=== PATIENT | male | born 1960 | race Two or more races ===

== ENCOUNTER 2024-06-11 12:07 | Emergency (ER) | payer BC, MEDICAID ==
[~2024-06-11] VITALS: Ht 182.9 cm; Wt 130.0 kg
[~2024-06-11 12:07] MED LIST: CARV3.1240 PO; DAPA1TAB4 PO; DIGO0.12 PO; FURO20TA3 PO; INSUINJ37 SC; LOSA-533 PO; METF-370 PO; OMEG-86 PO; RIV20T PO; ROSU20TA14 PO; SEMA1INJ2 SC
--- NOTE | 2024-06-11 13:19 | DVH ---
XY CHEST TWO VIEWS ROUTINE CLINICAL HISTORY: sob COMPARISON: None TECHNIQUE: Frontal and lateral view of the chest was obtained FINDINGS: Lines and Tubes: None Lungs: No focal consolidation. Mild diffuse interstitial prominence. Pleura: No effusion. No pneumothorax. Cardiomediastinal contours:Borderline cardiomegaly Bones: No acute osseous abnormality. IMPRESSION: 1. Borderline cardiomegaly with mild pulmonary vascular congestion. HS:Y
[2024-06-11 13:39] LABS: Basophils # (auto) 0.1 10 ^3/uL (0-0.2); Basophils % (auto) 1.1 % (0.0-2.0); Eosinophils # (auto) 0.2 10 ^3/uL (0-0.8); Eosinophils % (auto) 2.2 % (0.0-7.0); Hematocrit 36.2 % (41.0-53.0); Hemoglobin 12.6 g/dL (13.5-17.5); Lymphocytes # (auto) 1.7 10 ^3/uL (0.4-5.4); Lymphocytes % (auto) 21.6 % (10.0-50.0); Mean Corpuscular Hemoglobin 30.3 pg (28.0-32.0); Mean Corpuscular Hgb Conc. 34.8 g/dL (32.0-36.0); Mean Corpuscular Volume 87.1 fL (80.0-100.0); Monocytes % (auto) 12.9 % (0.0-12.0); Neutrophils # (auto) 4.9 10 ^3/uL (1.6-8.6); Neutrophils % (auto) 62.2 % (37.0-80.0); Nucleated Red Blood Cells % 0.1 %; Platelet Count (auto) 336 10^3/uL (140-450); Red Blood Cells 4.15 10^6/uL (4.5-5.90); Red Cell Distribution Width 14.6 % (11.8-14.3); White Blood Cell 7.9 10^3/uL (4.4-10.8)
[2024-06-11 14:00] LABS: Chloride 98 mmol/L (98-107); Sodium 136 mmol/L (136-145)
[2024-06-11 14:01] LABS: Anion Gap 6 (5-15); Calcium 9.3 mg/dL (8.7-10.4)
[2024-06-11 14:05] LABS: Carbon Dioxide 32 mmol/L (20-31); Potassium 3.1 mmol/L (3.5-5.1)
[2024-06-11 14:06] LABS: BUN/Creatinine Ratio 8.1 (10.0-20.0); Blood Urea Nitrogen 9 mg/dL (9-23)
[2024-06-11 14:09] LABS: Glucose 124 mg/dL (74-106)
[2024-06-11 14:30] VITALS: BP 120/69; TEMP 98.4
--- NOTE | 2024-06-11 14:35 | ED.PDOC ---
Musculoskeletal HPI Comments 64y M who presents to the ED via EMS for chief complaint of extremity swelling. Pt states he has noticed increased swelling of his bilateral lower extremities and called EMS. Pt states he has noticed history of CHF and states he was out of his Lasix for the past 10 days but states he has started taking it again a few days prior. Pt states he has continued to have swelling and called EMS. Pt otherwise in the ED, denies chest pain, shortness of breath, headache, dizziness, fever, cough, or chills. Pt in the ED, able to ambulate without getting short of breath. Pt otherwise denies any other symptoms at this time. Chief Complaint: Extremity Swelling Time Seen by MD: 14:13 Primary Care Provider: MIGDALIA Okeefe Notes: Nurses Notes, Firepot Operator And Tender Notes, Medications, Allergies Allergies: Coded Allergies: NO KNOWN ALLERGIES (Unverified , 06/11/24) Information Source: Patient, Emergency Med Personnel Mode of Arrival: EMS Brought in by: EMS Location: Left, Bilateral Extremity Location: Leg Timing: Days Prehospital treatment: None Severity: Moderate Able to Move Extremity: Yes Bear Weight: Fully Pain: Moderate Mechanism: Unknown, Spontaneous Circumstances: Unknown Onset of Symptoms: Spontaneous Symptoms: Swelling, Pain DVT Risk Factors: NONE Last Tetanus: Unknown Associated signs and symptoms: Leg pain Past Medical History PAST MEDICAL HISTORY: AFIB, CHF, DM, HTN Surgical History: Hernia Repair Family History Family History: Unknown Social History Smoker: Non-Smoker Alcohol: Denies ETOH Use Drugs: Marijuana Lives In: Home Constitutional: denies: chills, diaphoresis, fatigue, fever, malaise, sweats, weakness, others EENTM: denies: blurred vision, double vision, ear bleeding, ear discharge, ear drainage, ear pain, ear ringing, eye pain, eye redness, hearing loss, mouth pain, mouth swelling, nasal discharge, nose bleeding, nose congestion, nose pain, photophobia, tearing, throat pain, throat swelling, voice changes, others Respiratory: denies: cough, hemoptysis, orthopnea, SOB at rest, shortness of breath, SOB with excertion, stridor, wheezing, others Cardiovascular: denies: chest pain, dizzy spells, diaphoresis, Dyspnea on exertion, edema, irregular heart beat, left arm pain, lightheadedness, palpitations, PND, syncope, others Gastrointestinal: denies: abdomen distended, abdominal pain, blood streaked bowels, constipated, diarrhea, dysphagia, difficulty swallowing, hematemesis, melena, nausea, poor appetite, poor fluid intake, rectal bleeding, rectal pain, vomiting, others Genitourinary: denies: burning, dysuria, flank pain, frequency, hematuria, i ncontinence, penile discharge, penile sore, pain, testicle pain, testicle swelling, urgency, others Neurological: denies: dizziness, fainting, headache, left sided numbness, left sided weakness, numbness, paresthesia, pre-existing deficit, right sided numbness, right sided weakness, seizure, speech problems, tingling, tremors, weakness, others Musculoskeletal: reports: joint swelling (b/l lower extremity); denies: back pain, gout, joint pain, muscle pain, muscle stiffness, neck pain, others Integumetry: denies: bruises, change in color, change in hair/nails, dryness, laceration, lesions, lumps, rash, wounds, others Allergic/Immunocompromised: denies: Difficulty Healing, Frequent Infections, Hives, Itching, others Hematologic/Lymphatic: denies: anemia, blood clots, easy bleeding, easy bruising, swollen glands, others Endocrine: denies: excessive hunger, excessive sweating, excessive thirst, excessive urination, flushing, intolerance to cold, intolerance to heat, unexplained weight gain, unexplained weight loss, others Psychiatric: denies: anxiety, bipolar disorder, depression, hopeless, panic disorder, schizophrenia, sleepless, suicidal, others All Other Systems: Reviewed and Negative Physical Exam General Appearance: No Apparent Distress HEENT: Normal ENT Inspection, Pharynx Normal, TMs Normal Neck: Full Range of Motion, Non-Tender, Normal, Normal Inspection Respiratory: Chest Non-Tender, Lungs Clear, No Accessory Muscle Use, No Respiratory Distress, Normal Breath Sounds Cardiovascular: No Edema, No JVD, No Murmur, No Gallop, Normal Peripheral Pulses, Regular Rate/Rhythm Breast Exam: Deferred Gastrointestinal: No Organomegaly, Non Tender, No Pulsatile Mass, Normal Bowel Sounds, Soft Genitalia: Deferred Pelvic: Deferred Rectal: Deferred Extremities: No calf tenderness, Normal capillary refill, Normal inspection, Normal range of motion, Non-tender, No pedal edema Musculoskeletal : Apperance: Normal Neurologic: Alert, air valve repairer II-XII nml as Tested, No Motor Deficits, Normal Affect, Normal Mood, No Sensory Deficits Cerebellar Function: Normal Reflexes: Normal Skin: Dry, Normal Color, Warm Lymphatic: No Adenopathy Was a procedure done? Was a procedure done?: No EKG EKG : Pulse Rate (adult): 94 Theresa: Normal Cardiac Rhythm: Afib ST: Nonsp Differential Diagnosis EXT Differential Diagnosis: Cellulitis, CHF, Deep Vein Thrombosis, Arthritis X-Ray, Labs, Meds, VS Vital Signs Date Time Temp Pulse Resp B/P (MAP) Pulse Ox O2 Delivery O2 Flow Rate FiO2 06/11/24 15:56 94 06/11/24 14:46 96 20 97 Room Air 06/11/24 14:30 98.4 96 20 120/69 (86) 97 98.4 06/11/24 12:27 94 06/11/24 12:10 98.9 75 18 125/84 (98) 98 Lab Test 06/11/24 14:43 06/11/24 13:28 Range/Units Troponin I High Sensitivity 51 52 </=54 ng/L White Blood Count 7.9 4.4-10.8 10^3/uL Red Blood Count 4.15 L 4.5-5.90 10^6/uL Hemoglobin 12.6 L 13.5-17.5 g/dL Hematocrit 36.2 L 41.0-53.0 % Mean Corpuscular Volume 87.1 80.0-100.0 fL Mean Corpuscular Hemoglobin 30.3 28.0-32.0 pg Mean Corpuscular Hemoglobin Concent 34.8 32.0-36.0 g/dL Red Cell Distribution Width 14.6 H 11.8-14.3 % Platelet Count 336 140-450 10^3/uL Mean Platelet Volume 7.5 6.9-10.8 fL Neutrophils (%) (Auto) 62.2 37.0-80.0 % Lymphocytes (%) (Auto) 21.6 10.0-50.0 % Monocytes (%) (Auto) 12.9 H 0.0-12.0 % Eosinophils (%) (Auto) 2.2 0.0-7.0 % Basophils (%) (Auto) 1.1 0.0-2.0 % Neutrophils # (Auto) 4.9 1.6-8.6 10 ^3/uL Lymphocytes # (Auto) 1.7 0.4-5.4 10 ^3/uL Monocytes # (Auto) 1.0 0-1.3 10 ^3/uL Eosinophils # (Auto) 0.2 0-0.8 10 ^3/uL Basophils # (Auto) 0.1 0-0.2 10 ^3/uL Nucleated Red Blood Cells 0.1 % Sodium Level 136 136-145 mmol/L Potassium Level 3.1 L 3.5-5.1 mmol/L Chloride Level 98 98-107 mmol/L Carbon Dioxide Level 32 H 20-31 mmol/L Anion Gap 6 5-15 Blood Urea Nitrogen 9 9-23 mg/dL Creatinine 1.11 0.700-1.30 mg/dL Glomerular Filtration Rate Calc 75 >90 mL/min BUN/Creatinine Ratio 8.1 L 10.0-20.0 Serum Glucose 124 H 74-106 mg/dL Calcium Level 9.3 8.7-10.4 mg/dL B-Type Natriuretic Peptide 128.50 0-100 pg/mL XY CHEST TWO VIEWS ROUTINE IMPRESSION: 1. Borderline cardiomegaly with mild pulmonary vascular congestion. The patient states that he is feeling much better. The patient now has a Lasix and has been taking it The patient's CBC and chemistry panel is within normal limits except for hypok alemia We giving the patient some potassium here in the emergency department's The patient was being discharged and will follow up with the primary care doctor The patient will return to the emergency department's condition worsens. The patient was able to ambulate without difficulty We discussed the findings with the patient and he is in agreement with the management. Images Reviewed?: Images reviewed and evaluated by me Time of 1ST Reevaluation: 14:45 Reevaluation 1ST: Unchanged Patient Education/Counseling: Diagnosis, Treatment, Prognosis, Need For Follow Up Family Education/Counseling: No Family Present Additional Information I reviewed the following notes from patient's past medical encounters: The following tests were ordered, and results were reviewed by me: troponin x 3, BMP, chest -ray, orthostatics, BNP, CBC, EKG x1, Additional Information was gathered from interviewing the following independent historians: EMS I reviewed and agreed with the following test results read by other providers: radiologist I discussed treatment and results with medical personnel and: patient Departure 1 Departure Time of Disposition: 16:04 Impression: Primary Impression: Hypokalemia Additional Impression: CHF exacerbation Qualified Codes: I50.9 - Heart failure, unspecified Disposition: 01 HOME / SELF CARE / HOMELESS Condition: Fair Discharged With: Self Critical Care Note Critical Care Time?: No Stability Stability form required: No Heart Score Heart Score: Heart Score Response (Comments) Value History N/A 0 EKG N/A 0 Age N/A 0 Risk Factors N/A 0 Troponin N/A 0 Total 0 I personally scribed for SHMEAR MATOS MD ([email or web address]) on 06/11/24 at 14:35. Electronically submitted by Consuelo Soni ([email or web address]). SHEMAR MATOS MD Jun 11, 2024 14:35
[2024-06-11 14:46] VITALS: RESP 20; O2SAT 97
[2024-06-11 15:56] VITALS: PULSE 94
--- NOTE | 2024-06-13 13:41 | ECG ---
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
== END 2024-06-11 16:55 | disposition home or self-care (01) ==
LOC: EDBD 12:07 → ER 12:07
DX: E87.6 Hypokalemia (principal); I11.0 Hypertensive heart disease with heart failure; I50.9 Heart failure, unspecified; F12.10 Cannabis abuse, uncomplicated; E11.9 Type 2 diabetes mellitus without complications; Z98.890 Other specified postprocedural states
CPT/HCPCS: 36415; 71046; 80048; 83880; 84484; 85025; 93005

== ENCOUNTER 2024-06-15 21:57 | Inpatient (IN) | payer BC, MEDICAID ==
[~2024-06-15] VITALS: Ht 182.9 cm; Wt 101.3 kg
--- NOTE | 2024-06-15 22:26 | ED.PDOC ---
History of Present Illness HPI Comments 64-year-old male with PMHx CHF, A-Fib, HTN, DM brought in by EMS presents with a chief complaint of edema and SOB upon exertion. Patient presents with a chief complaint of edema to his bilateral legs and SOB with exertion. Patient states that he was walking because "my sister didn't pick me up". Patient reports that he was recently seen and treated here for his bilateral hand infection. Patient does not know which antibiotics he is currently prescribed. Patient is alert and oriented. Chief Complaint: Lower Extremity Time Seen by MD: 22:15 Primary Care Provider: MIGDALIA Okeefe Notes: Medications, Allergies Allergies: Coded Allergies: NO KNOWN ALLERGIES (Unverified , 06/11/24) Information Source: Patient Mode of Arrival: EMS Severity: Moderate Timing: Hours Duration: Since onset Prehospital treatment: None Past Medical History PAST MEDICAL HISTORY: AFIB, CHF, DM, HTN Surgical History: Hernia Repair Family History Family History: Unknown Social History Smoker: Non-Smoker Alcohol: Denies ETOH Use Drugs: Marijuana Lives In: Home Constitutional: denies: chills, diaphoresis, fatigue, fever, malaise, sweats, weakness, others EENTM: denies: blurred vision, double vision, ear bleeding, ear discharge, ear drainage, ear pain, ear ringing, eye pain, eye redness, hearing loss, mouth pain, mouth swelling, nasal discharge, nose bleeding, nose congestion, nose pain, photophobia, tearing, throat pain, throat swelling, voice changes, others Respiratory: reports: SOB with excertion; denies: cough, hemoptysis, orthopnea, SOB at rest, shortness of breath, stridor, wheezing, others Cardiovascular: reports: edema (BILATERAL LEGS); denies: chest pain, dizzy spells, diaphoresis, Dyspnea on exertion, irregular heart beat, left arm pain, lightheadedness, palpitations, PND, syncope, others Gastrointestinal: denies: abdomen distended, abdominal pain, blood streaked bowels, constipated, diarrhea, dysphagia, difficulty swallowing, hematemesis, melena, nausea, poor appetite, poor fluid intake, rectal bleeding, rectal pain, vomiting, others Genitourinary: denies: burning, dysuria, flank pain, frequency, hematuria, incontinence, penile discharge, penile sore, pain, testicle pain, testicle swelling, urgency, others Neurological: denies: dizziness, fainting, headache, left sided numbness, left sided weakness, numbness, paresthesia, pre-existing deficit, right sided numbness, right sided weakness, seizure, speech problems, tingling, tremors, weakness, others Musculoskeletal: denies: back pain, gout, joint pain, joint swelling, muscle pain, muscle stiffness, neck pain, others Integumetry: denies: bruises, change in color, change in hair/nails, dryness, laceration, lesions, lumps, rash, wounds, others Allergic/Immunocompromised: denies: Difficulty Healing, Frequent Infections, Hives, Itching, others Hematologic/Lymphatic: denies: anemia, blood clots, easy bleeding, easy bruising, swollen glands, others Endocrine: denies: excessive hunger, excessive sweating, excessive thirst, excessive urination, flushing, intolerance to cold, intolerance to heat, unexplained weight gain, unexplained weight loss, others Psychiatric: denies: anxiety, bipolar disorder, depression, hopeless, panic disorder, schizophrenia, sleepless, suicidal, others All Other Systems: Reviewed and Negative Physical Exam General Appearance: No Apparent Distress, Normal HEENT: Normal ENT Inspection, Pharynx Normal, TMs Normal Neck: Full Range of Motion, Non-Tender, Normal, Normal Inspection Respiratory: Chest Non-Tender, Lungs Clear, No Accessory Muscle Use, No Respiratory Distress, Normal Breath Sounds Cardiovascular: No Edema, No JVD, No Murmur, No Gallop, Normal Peripheral Pulses, Regular Rate/Rhythm Breast Exam: Deferred Gastrointestinal: No Organomegaly, Non Tender, No Pulsatile Mass, Normal Bowel Sounds, Soft Genitalia: Deferred Pelvic: Deferred Rectal: Deferred Extremities: No calf tenderness, Normal capillary refill, Normal inspection, Normal range of motion, Non-tender, No pedal edema Musculoskeletal : Apperance: Normal Neurologic: Alert, blood coordinator II-XII nml as Tested, No Motor Deficits, Normal Affect, Normal Mood, No Sensory Deficits Cerebellar Function: Normal Reflexes: Normal Skin: Dry, Normal Color, Warm Lymphatic: No Adenopathy Was a procedure done? Was a procedure done?: No Differential Dx Considerations may include: Acute on chronic CHF, CVA, ACS, pneumonia, viral syndrome X-Ray, Labs, Meds, VS Vital Signs Date Time Temp Pulse Resp B/P (MAP) Pulse Ox O2 Delivery O2 Flow Rate FiO2 06/15/24 22:10 91 06/15/24 22:04 98.0 99 18 109/68 (82) 96 Lab Test 06/16/24 01:25 06/15/24 23:36 06/15/24 22:33 Range/Units Troponin I High Sensitivity Pending 50 52 </=54 ng/L White Blood Count 9.9 # 4.4-10.8 10^3/uL Red Blood Count 4.63 4.5-5.90 10^6/uL Hemoglobin 14.0 13.5-17.5 g/dL Hematocrit 40.8 #L 41.0-53.0 % Mean Corpuscular Volume 88.0 80.0-100.0 fL Mean Corpuscular Hemoglobin 30.2 28.0-32.0 pg Mean Corpuscular Hemoglobin Concent 34.3 32.0-36.0 g/dL Red Cell Distribution Width 14.9 H 11.8-14.3 % Platelet Count 356 140-450 10^3/uL Mean Platelet Volume 7.8 6.9-10.8 fL Neutrophils (%) (Auto) 67.9 37.0-80.0 % Lymphocytes (%) (Auto) 21.7 10.0-50.0 % Monocytes (%) (Auto) 8.0 0.0-12.0 % Eosinophils (%) (Auto) 1.4 0.0-7.0 % Basophils (%) (Auto) 1.0 0.0-2.0 % Neutrophils # (Auto) 6.7 1.6-8.6 10 ^3/uL Lymphocytes # (Auto) 2.1 0.4-5.4 10 ^3/uL Monocytes # (Auto) 0.8 0-1.3 10 ^3/uL Eosinophils # (Auto) 0.1 0-0.8 10 ^3/uL Basophils # (Auto) 0.1 0-0.2 10 ^3/uL Nucleated Red Blood Cells 0.2 % Sodium Level 134 L 136-145 mmol/L Potassium Level 2.9 L 3.5-5.1 mmol/L Chloride Level 99 98-107 mmol/L Carbon Dioxide Level 25 20-31 mmol/L Anion Gap 10 5-15 Blood Urea Nitrogen 10 9-23 mg/dL Creatinine 0.88 0.700-1.30 mg/dL Glomerular Filtration Rate Calc 97 >90 mL/min BUN/Creatinine Ratio 11.4 10.0-20.0 Serum Glucose 85 74-106 mg/dL Calcium Level 10.1 8.7-10.4 mg/dL B-Type Natriuretic Peptide 158.60 0-100 pg/mL Time of 1ST Reevaluation: 22:45 Reevaluation 1ST: Unchanged Patient Education/Counseling: Diagnosis, Treatment, Prognosis Family Education/Counseling: No Family Present Departure 1 Departure Time of Disposition: 01:39 (Patient likely with a CHF exacerbation. Patient be treated with IV Lasix. Patient is requiring 2 L nasal cannula. Admit patient for further workup) Impression: Primary Impression: CHF exacerbation Qualified Codes: I50.43 - Acute on chronic combined systolic (congestive) and diastolic (congestive) heart failure Additional Impressions: Lower extremity edema Dyspnea Qualified Codes: R06.02 - Shortness of breath Disposition: ADMITTED INPATIENT Admit to: Med Surg Condition: Serious Critical Care Note Critical Care Time?: No Stability Stability form required: No Heart Score Heart Score: Heart Score Response (Comments) Value History Slightly Suspicious 0 EKG Repolarization Disturb 1 Age 45-64 1 Risk Factors >3 or Hx ASHD 2 Troponin 1-2 x's Normal limit 1 Total 5 I personally scribed for CORIN HERNÁNDEZ MD ([email or web address]) on 06/15/24 at 22:26. Electronically submitted by Simon Lui ([email or web address]). CORIN HERNÁNDEZ MD Jun 15, 2024 22:26
--- NOTE | 2024-06-15 22:34 | DVH ---
CHEST RADIOGRAPH Indication: sob Technique: Single frontal view of the chest was obtained COMPARISON: None FINDINGS: Lines and Tubes: None Lungs: Mild interstitial pulmonary edema Pleura: Questionable trace bilateral effusions No pneumothorax. Cardiomediastinal contours: Cardiomegaly Bones: Unremarkable IMPRESSION: 1. Mild interstitial pulmonary edema in the setting of cardiomegaly. 2. Questionable trace bilateral pleural effusions
[2024-06-15 22:46] LABS: Basophils # (auto) 0.1 10 ^3/uL (0-0.2); Eosinophils # (auto) 0.1 10 ^3/uL (0-0.8); Eosinophils % (auto) 1.4 % (0.0-7.0); Hematocrit 40.8 % (41.0-53.0); Lymphocytes # (auto) 2.1 10 ^3/uL (0.4-5.4); Lymphocytes % (auto) 21.7 % (10.0-50.0); Mean Corpuscular Hemoglobin 30.2 pg (28.0-32.0); Mean Corpuscular Hgb Conc. 34.3 g/dL (32.0-36.0); Monocytes # (auto) 0.8 10 ^3/uL (0-1.3); Neutrophils # (auto) 6.7 10 ^3/uL (1.6-8.6); Neutrophils % (auto) 67.9 % (37.0-80.0); Nucleated Red Blood Cells % 0.2 %; Platelet Count (auto) 356 10^3/uL (140-450); Red Blood Cells 4.63 10^6/uL (4.5-5.90); Red Cell Distribution Width 14.9 % (11.8-14.3); White Blood Cell 9.9 10^3/uL (4.4-10.8)
[2024-06-15 22:59] LABS: Chloride 99 mmol/L (98-107)
[2024-06-15 23:00] LABS: Anion Gap 10 (5-15); Carbon Dioxide 25 mmol/L (20-31)
[2024-06-15 23:01] LABS: Calcium 10.1 mg/dL (8.7-10.4)
[2024-06-15 23:05] LABS: Glucose 85 mg/dL (74-106)
[2024-06-15 23:06] LABS: BUN/Creatinine Ratio 11.4 (10.0-20.0); Blood Urea Nitrogen 10 mg/dL (9-23); Potassium 2.9 mmol/L (3.5-5.1); Sodium 134 mmol/L (136-145)
[2024-06-16] MEDS ORDERED: NITROGLYCERIN 0.4 MG SL TAB SL PRN (02:30)
[2024-06-16] MEDS ORDERED: MORPHINE SULFATE INJ 2 MG/ml SYRG IV PRN (02:30)
[2024-06-16] MEDS ORDERED: ACETAMINOPHEN 325 MG TAB PO PRN (02:30)
[2024-06-16] MEDS ORDERED: ONDANSETRON HCL 4 MG/2 ML VIAL IV PRN (02:30)
--- NOTE | 2024-06-16 02:38 | DVHHP2 ---
Admitting Diagnosis: Acute CHF exacerbation, right hand wound History of Present Illness History Source: Patient Exam Limitations: No limitations HPI Mr. Antonio Farris is a 64-year-old male with a history of CHF, A-Fib, Hypertension, DM presents with a chief complaint of edema and SOB upon exertion. Patient presents with a chief complaint of edema to his bilateral legs and SOB with exertion. Patient endorses right hand pain with swelling, erythema and draining wound which he states he was seen here in the ED on Sunday and was sent home. Patient reports he has been treating his right hand wound with hydrogen peroxide, neosporin with no relief and with worsening symptoms. Patient reports he is compliant with his medications. Patient admitted for further evaluation and treatment. Past Medical History Cardiac: AFIB, CHF, HTN Pulmonary: No pertinent Hx Central Nervous System: No pertinent Hx GI: No pertinent Hx Hemotology/Oncology: No pertinent Hx Hepatobiliary: No pertinent Hx Psychiatric: No pertinent Hx Musculoskeletal: No pertinent Hx Rheumotologic: No pertinent Hx Infectious Disease: No peritnent Hx ENT: No pertinent Hx Renal/: No pertinent Hx Endocrine: NIDDM Dermatology: No pertinent Hx Smoker: No Hx (Negative) Alocohol: None Drugs: None Domestic Violence: Neg Review of Systems Pulmonary/Respiratory: Dyspnea (with exertion) Musculoskeletal: Hand pain (right hand pain , swelling, erythema), Other (bilateral lower extremity swelling) H&P Exam Vital Signs Vital Signs Date Time Temp Pulse Resp B/P (MAP) Pulse Ox O2 Delivery O2 Flow Rate FiO2 06/16/24 01:40 97.5 87 17 111/68 (82) 98 97.5 General Appeara: Well developed, Well nourished Head Exam: Normal inspection Neck Exam: Normal inspection, Non-tender, Normal alignment Eye Exam: bilateral eye Normal inspection, bilateral eye PERRL, bilateral eye EOMI Ear Exam: bilateral ear Auricle normal Nasal Exam: Normal inspection Mouth: Normal Inspection Pulmonary/Respiratory: Normal inspection, Normal breath sounds, Chest non- tender, Lungs clear Cardiovascular/Chest: Normal inspection, Edema (bilateral lower extremity hiro a), Regular rate, Normal Rhythm Peripheral Pulses: 2+ dorsalis pedis (R), 2+ dorsalis pedis (L), 2+ Radial (R), 2+ Radial (L) Abdominal Exam: Normal bowel sounds, Soft, No tenderness Rectal Exam: Deferred Legs: bilateral leg swelling WAGON WINDER Exam: Normal hearing, Normal speech, PERRL Neuro/Mental St: Alert, Oriented Appearance: Appropriate appearance, Appropriate insight Eye contact/ Speech: Cooperative, Good eye contact, Normal speech Thoughts/Psych: Normal thought pattern Skin Exam: Normal inspection, Normal color, Warm/dry, Other (right hand s welling, erythema, wound) Labs/Xrays Labs Test 06/16/24 01:25 06/15/24 22:33 Range/Units Troponin I High Sensitivity 55 *H </=54 ng/L White Blood Count 9.9 # 4.4-10.8 10^3/uL Red Blood Count 4.63 4.5-5.90 10^6/uL Hemoglobin 14.0 13.5-17.5 g/dL Hematocrit 40.8 #L 41.0-53.0 % Mean Corpuscular Volume 88.0 80.0-100.0 fL Mean Corpuscular Hemoglobin 30.2 28.0-32.0 pg Mean Corpuscular Hemoglobin Concent 34.3 32.0-36.0 g/dL Red Cell Distribution Width 14.9 H 11.8-14.3 % Platelet Count 356 140-450 10^3/uL Mean Platelet Volume 7.8 6.9-10.8 fL Neutrophils (%) (Auto) 67.9 37.0-80.0 % Lymphocytes (%) (Auto) 21.7 10.0-50.0 % Monocytes (%) (Auto) 8.0 0.0-12.0 % Eosinophils (%) (Auto) 1.4 0.0-7.0 % Basophils (%) (Auto) 1.0 0.0-2.0 % Neutrophils # (Auto) 6.7 1.6-8.6 10 ^3/uL Lymphocytes # (Auto) 2.1 0.4-5.4 10 ^3/uL Monocytes # (Auto) 0.8 0-1.3 10 ^3/uL Eosinophils # (Auto) 0.1 0-0.8 10 ^3/uL Basophils # (Auto) 0.1 0-0.2 10 ^3/uL Nucleated Red Blood Cells 0.2 % Sodium Level 134 L 136-145 mmol/L Potassium Level 2.9 L 3.5-5.1 mmol/L Chloride Level 99 98-107 mmol/L Carbon Dioxide Level 25 20-31 mmol/L Anion Gap 10 5-15 Blood Urea Nitrogen 10 9-23 mg/dL Creatinine 0.88 0.700-1.30 mg/dL Glomerular Filtration Rate Calc 97 >90 mL/min BUN/Creatinine Ratio 11.4 10.0-20.0 Serum Glucose 85 74-106 mg/dL Calcium Level 10.1 8.7-10.4 mg/dL B-Type Natriuretic Peptide 158.60 0-100 pg/mL Assessment/Plan Problem List: (1) CHF exacerbation (2) Lower extremity edema (3) Dyspnea (4) Hypokalemia Plan 64 yo male with known history of CHF, A fib, Hypertension, DM presents to the hospital with bilateral lower extremity edema, and exertional dyspnea. Patient found to have 1. Acute CHF exacerbation 2. Hypokalemia 3. Shortness of breath 4. Right had wound Patient admitted to telemetry Cardiology consultation, 2D echocardiogram Fluid restriction/strict I&O's IV diuresis Furosemide Monitor electrolytes replenish as needed Empiric broad spectrum IV antibiotics Vancomycin, Ceftriaxone CT right hand Discussed all above with patient assessment and care plan. Patient verbalized agreement and understanding of care plan. All questions were answered. Discussed assessment and care plan with supervising MD. Plan discussed with: Patient, Other Code Visit Code Visit Total Time (mins): 45 Additional Comments Additional Comments Additional Comments Patient was seen and evaluated by me. I agree with the assessment and plan as outlined by my nurse practitioner. COSMO ORTA Jun 16, 2024 02:38 CELI AGUDELO MD Jun 16, 2024 16:28
[2024-06-16] MEDS: POTASSIUM CHL 20 Meq TABLET PO ONE (03:28)
[2024-06-16] MEDS: ASPirin-EC 81 mg tab PO SCH (03:28)
[2024-06-16] MEDS: FUROSEMIDE 40 MG/4 ML VIAL IV ONE (03:29)
[2024-06-16 03:30] VITALS: PULSE 100; RESP 18; O2SAT 96
[2024-06-16] MEDS: HYDROcodone-ACET 5/325MG TAB PO PRN (03:41)
--- NOTE | 2024-06-16 04:03 | ECG ---
[facility] [place] Test Date: 2024-06-15 Test Time: 22:10:06 Pat Name: ALICIA LEMUS Department: ED Room: [address] [place] [address] A Gender: M Reimbursement Specialist: NICOLE : 1960 Requested By: CORIN HERNÁNDEZ Order Number: [id number] Reading MD: Russel Torres Measurements Intervals [place] Rate: 91 P: 0 MA: 0 QRS: -63 QRSD: 130 T: 81 QT: 403 QTc: 496 Interpretive Statements Atrial fibrillation Left bundle branch block Electronically Signed On 06-17-2024 13:07:48 PST by Russel Torres Please click the below link to view image of tracing.
[2024-06-16 05:10] LABS: Chloride 99 mmol/L (98-107); Potassium 3.8 mmol/L (3.5-5.1)
[2024-06-16 05:11] LABS: Anion Gap 10 (5-15); Calcium 10.1 mg/dL (8.7-10.4); Carbon Dioxide 26 mmol/L (20-31)
[2024-06-16 05:16] LABS: BUN/Creatinine Ratio 11.2 (10.0-20.0); Blood Urea Nitrogen 11 mg/dL (9-23); Triglycerides 94 mg/dL (< 150)
[2024-06-16 05:17] LABS: LDL Cholesterol 47 mg/dL (< 100)
[2024-06-16 05:18] LABS: Cholesterol 106 mg/dL (< 200); HDL Cholesterol 41 mg/dL (40-59)
[2024-06-16 05:20] LABS: Glucose 122 mg/dL (74-106); Sodium 135 mmol/L (136-145)
[2024-06-16] MEDS ORDERED: VANCOMYCIN PER PHARMACY 0 MG IV SCH (06:00)
[2024-06-16] MEDS: cefTRIAXone 1GM/50ML D5W 50 ML IV SCH (06:23)
--- NOTE | 2024-06-16 06:53 | DVH ---
CLINICAL INDICATION: 64 years old, Male; edema, wound. TECHNIQUE: Noncontrast CT of the right hand was performed. Sagittal and coronal reformatted images ar e provided. COMPARISON: None CT Dose: CTDI volume is 7.8 mGy. Dose-length product is 170 mGy*cm FINDINGS: No fracture or dislocation. No cortical destruction. Joint spaces are maintained. No abnormal alignm ent. There soft tissue swelling in the right forearm and hand. There is prominence of the skin overlying the 4th digit along the ulnar side of the metacarpophalangeal joint. No obvious fluid collection. IMPRESSION: 1. Soft tissue swelling in the forearm and hand which may reflect cellulitis. Prominence of the skin overlying the 4th finger which may reflect ulceration or other wound. Please correlate clinically. No obvious fluid collection. 2. No CT evidence of acute osseous abnormality. All CT scans at this medical facility are performed using dose modulation techniques as appropriate t o a performed exam including the following: Automated exposure control was utilized; adjustment of th e MA and/or KV according to patient size; and use of iterative reconstruction technique.
[2024-06-16] MEDS: VANCOMYCIN 1GM/250mL NS or D5W KIT IV SCH (07:03)
[2024-06-16 07:40] VITALS: PULSE 110; RESP 17; O2SAT 97
[2024-06-16 07:45] LABS: Erythrocyte Sedimentation Rate 65 mm/hr (0-20)
[2024-06-16] MEDS: FAMOTIDINE 20 MG TAB PO SCH (09:50)
[2024-06-16] MEDS: ENOXAPARIN SOD 40 MG/0.4 ML SYRINGE SC SCH (09:50)
[2024-06-16] MEDS: FUROSEMIDE 40 MG/4 ML VIAL IV SCH (09:51)
--- NOTE | 2024-06-16 18:16 | DVHINCON2 ---
DATE OF CONSULTATION: 06/16/2024 REFERRING PHYSICIAN: Dr. Snow. CONSULTING PHYSICIAN: Dr. Fan. INDICATION: Shortness of breath. HISTORY OF PRESENT ILLNESS: The patient is a 64-year-old male with history of CHF, hypertension, AFib, diabetes, presented to the hospital with worsening lower extremity edema and shortness of breath. He is admitted with diagnosis of decompensated heart failure, currently on IV Lasix with improvement in his symptoms. PAST MEDICAL HISTORY: 1. CHF. 2. Hypertension. MEDICATIONS: Per med rec. ALLERGIES: No known drug allergies. PHYSICAL EXAMINATION: GENERAL: Alert and awake, in no form of cardiopulmonary distress. VITAL SIGNS: Blood pressure 127/70, pulse 100 per minute, saturation 96%. HEENT: No carotid bruits. No jugular venous distention. CHEST: Bilateral air entry. CARDIOVASCULAR: Submucosal and palpable. Normal S1, S2. Regular. EXTREMITIES: Bilateral edema. DIAGNOSTIC DATA: White count 9, hemoglobin 14, platelet is 356. Sodium 135, potassium 3.8, creatinine 0.9. Troponin negative x2. ASSESSMENT: * Decompensated heart failure. * Atrial fibrillation with rapid ventricular response. * Hypertension. * Obesity. * Chronic kidney disease. RECOMMENDATIONS: * Agree with diuresis. * Continue with IV Lasix. * Monitor input and output closely. * Monitor electrolytes and renal function closely. * We will review echo once completed. * Continue telemetry monitoring. Thank you for allowing me to participate in the care of this patient. MD JOHN Page/HIRO TID: [id number] RECEIPT: [id number]
[2024-06-16] MEDS: VANCOMYCIN 1GM/250ML KIT 250 ML IV SCH (20:10)
[2024-06-16] MEDS: ENOXAPARIN SOD 100 MG/1 ML SYRINGE SC SCH (21:40)
[2024-06-16] MEDS: ATORVASTATIN 20 MG TAB PO SCH (22:24)
[2024-06-16] MEDS: METOPROLOL TARTRATE 1MG/1ML-5ML VIAL IV PRN (22:25)
[2024-06-16 23:26] VITALS: PULSE 122; RESP 17; O2SAT 97
[2024-06-17 00:16] LABS: Cannabinoid Screen, Urine Neg (NEGATIVE); Opiate Scree,Urine Neg (NEGATIVE)
[2024-06-17 00:17] LABS: Amphetamine Screen, Urine Neg (NEGATIVE); Barbiturate Scree,Urine Neg (NEGATIVE); Benzodiazephine Screen, Urine Neg (NEGATIVE); Cocaine Screen, Urine Neg (NEGATIVE); Phencyclidine Screen, Urine Neg (NEGATIVE)
[2024-06-17 04:14] LABS: Chloride 101 mmol/L (98-107)
[2024-06-17 04:15] LABS: Anion Gap 8 (5-15); Carbon Dioxide 26 mmol/L (20-31)
[2024-06-17 04:21] LABS: Blood Urea Nitrogen 13 mg/dL (9-23)
[2024-06-17 04:23] LABS: Glucose 117 mg/dL (74-106); Potassium 3.5 mmol/L (3.5-5.1); Sodium 135 mmol/L (136-145)
[2024-06-17] MEDS: AMIODARONE 450mg/250ml AE 250 ML IV SCH (05:00)
[2024-06-17] MEDS: AMIODARONE BOLUS KIT 100 ML IV ONE (05:06)
[2024-06-17] MEDS: LORazepam 2MG/ML-1ML VIAL IV ONE (05:28)
[2024-06-17 08:00] VITALS: PULSE 122; RESP 15; O2SAT 91
[2024-06-17] MEDS: METOPROLOL TARTRATE 25 MG TAB PO SCH (10:23)
[2024-06-17] MEDS ORDERED: AMIODARONE 450mg/250ml AE 250 ML IV SCH (11:00)
--- NOTE | 2024-06-17 14:06 | ECG ---
[facility] Test Date: 2024-06-16 Test Time: 02:23:33 Pat Name: ALICIA LEMUS Department: ED Room: 0293T Gender: M Porter Baggage: NICOLE : 1960 Requested By: CORIN HERNÁNDEZ Order Number: [id number] Reading MD: Russel Torres Measurements Intervals [place] Rate: 109 P: 0 WI: 0 QRS: -40 QRSD: 123 T: 52 QT: 382 QTc: 515 Interpretive Statements Atrial fibrillation Left bundle branch block Baseline wander in lead(s) I,II,aVR,aVL,aVF,V2 Electronically Signed On 06-19-2024 14:16:05 PST by Russel Torres Please click the below link to view image of tracing.
[2024-06-17] MEDS: DIGOXIN (250MCG/ML) 2 ML AMPULE IV ONE (15:49)
[2024-06-17 16:28] VITALS: BP 158/93; PULSE 110; RESP 93; TEMP 98.3; O2SAT 94
[2024-06-17 16:29] VITALS: BP 158/93; PULSE 115; RESP 18; TEMP 98.1; O2SAT 94
--- NOTE | 2024-06-17 17:33 | DVHINCON2 ---
Date of service: Jun 17, [address] Snow Reason for Consultation right hand infection/ cellulitis History of Present Illness Patient is a 64-year-old male presents to the hospital for the complaint of edema and SOB upon exertion. Patient reports edema to his bilateral legs. Patient states that he came in the ED on Sunday for the complaint of right hand pain with swelling, erythema and draining wound. He has been treating his right hand wound with hydrogen peroxide, Neosporin with no relief and with worsening symptoms. Patient reports he is compliant with his medications. Past Medical History Patient's past medical history is significant for CHF, A-Fib, Hypertension and DM Allergies: Coded Allergies: NO KNOWN ALLERGIES (Unverified , 06/11/24) Home Meds Reported Medications Insulin Glargine (Lantus Solostar) 100 Unit/Ml Inj, UNIT SC UD for 50 Days, #15 06/17/24 Semaglutide (Ozempic) 8 Mg/3 Ml Inj, MG SC UD for 28 Days, #3 06/17/24 Digoxin (Digoxin) 125 Mcg Tab, 1 TAB PO DAILY for 90 Days, #90 06/17/24 Rosuvastatin Calcium (Crestor) 20 Mg Tab, 1 TAB PO DAILY for 90 Days, #90 24 Cfkub-1-Pidq Ethyl Esters (Eelyq-9-Ekpq Ethyl Esters) 1 Gm Cap, 2 CAP PO BID for 30 Days, #120 24 Losartan Potassium (Losartan Potassium) 25 Mg Tab, 1 TAB PO DAILY for 100 Days, #100 24 Carvedilol (Carvedilol) 3.125 Mg Tab, 1 TAB PO BID for 100 Days, #200 24 Dapagliflozin Propanediol (Farxiga) 10 Mg Tab, 5 MG PO DAILY for 30 Days, #30 24 Furosemide (Furosemide) 20 Mg Tab, 1 TAB PO DAILY for 100 Days, #100 24 Rivaroxaban (Xarelto Tablet) 20 Mg Tb, 1 TAB PO DAILY for 30 Days, #30 24 Metformin Hydrochloride (Metformin Hcl) 500 Mg Tab, 1 TAB PO BID for 30 Days, #60 06/17/24 Current Medications Current Medications Medications (Trade) Dose Ordered Sig/Juan Manuel Route PRN Reason Start Time Stop Time Status Last Admin Atorvastatin Calcium (Lipitor) 40 mg HS PO 06/16/24 22:00 06/16/24 22:24 Vancomycin HCl 250 ml @ 250 mls/hr Q12H IV 06/16/24 19:00 06/17/24 07:06 Enoxaparin Sodium (Lovenox) 100 mg Q12H SC 06/16/24 21:00 06/17/24 10:25 Metoprolol Tartrate (Lopressor) 2.5 mg Q4HPRN PRN IV HEART RATE GREATER THAN 130 06/16/24 20:30 06/17/24 06:28 DC 06/16/24 22:25 Amiodarone HCl 250 ml @ 33.333 mls/ hr Q7H30M IV 06/17/24 05:00 06/17/24 06:28 DC Amiodarone HCl 250 ml @ 16.667 mls/ hr Q15H IV 06/17/24 11:00 06/17/24 06:28 DC Metoprolol Tartrate (Lopressor Tablet) 25 mg BID PO 06/17/24 10:00 06/17/24 10:23 Review of Systems General: No Fever, chills, night sweats or weight loss HEENT: No Sinus pain, headache, vision changes or sore throat Respiratory: Reports dyspnea with exertion, sputum production Cardiovascular: No Chest pain, palpitations or leg edema Gastrointestinal: No Nausea, vomiting, diarrhea, abdominal pain Genitourinary: No Dysuria, urinary frequency, hematuria, pelvic pain Skin: No Rashes, ulcers, abscesses, redness or swelling Musculoskeletal: Reports Right Hand pain and swelling, Bilateral lower extremity swelling. No Joint pain, muscle pain or swelling Neurologic: No Altered mental status, headaches or focal neurological deficits Psychiatric: No Anxiety, depression or confusion Vital Signs Vital Signs Date Time Temp Pulse Resp B/P (MAP) Pulse Ox O2 Delivery O2 Flow Rate FiO2 06/17/24 16:28 98.3 110 93 158/93 (114) 94 98.3 06/17/24 08:00 Nasal Cannula* 2 28 Physical Exam General Appeara: Well developed, Well nourished Head Exam: Normal inspection Neck Exam: Normal inspection, Non-tender, Normal alignment Eye Exam: bilateral eye Normal inspection, bilateral eye PERRL, bilateral eye EOMI Ear Exam: bilateral ear Auricle normal Nasal Exam: Normal inspection Mouth: Normal Inspection Pulmonary/Respiratory: Normal inspection, Normal breath sounds, Chest non- tender, Lungs clear Cardiovascular/Chest: Normal inspection, Edema (bilateral lower extremity edema), Regular rate, Normal Rhythm Abdominal Exam: Normal bowel sounds, Soft, No tenderness 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: 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, Normal speech, PERRL Neuro/Mental St: Alert, Oriented Skin Exam: Normal inspection, Normal color, Warm/dry, Other (right hand s welling, erythema, wound) Labs/Diagnostic Data Labs Test 06/17/24 03:44 06/16/24 23:53 06/16/24 20:01 06/16/24 07:56 Range/Units Sodium Level 135 L 136-145 mmol/L Potassium Level 3.5 3.5-5.1 mmol/L Chloride Level 101 98-107 mmol/L Carbon Dioxide Level 26 20-31 mmol/L Anion Gap 8 5-15 Blood Urea Nitrogen 13 9-23 mg/dL Creatinine 1.08 0.700-1.30 mg/dL Glomerular Filtration Rate Calc 78 >90 mL/min BUN/Creatinine Ratio 12.0 10.0-20.0 Serum Glucose 117 H 74-106 mg/dL Calcium Level 10.0 8.7-10.4 mg/dL Urine Opiates Screen Neg NEGATIVE Urine Fentanyl Screen Neg NEGATIVE Urine Barbiturates Screen Neg NEGATIVE Urine Phencyclidine Screen Neg NEGATIVE Urine Amphetamines Screen Neg NEGATIVE Urine Benzodiazepines Screen Neg NEGATIVE Urine Cocaine Screen Neg NEGATIVE Urine Cannabinoids Screen Neg NEGATIVE Troponin I High Sensitivity 48 </=54 ng/L Lactic Acid Level 1.3 0.4-2.0 mmol/L Test 06/16/24 04:38 06/16/24 01:25 06/15/24 22:33 Range/Units Erythrocyte Sedimentation Rate 65 H 0-20 mm/hr Triglycerides Level 94 < 150 mg/dL Cholesterol Level 106 < 200 mg/dL LDL Cholesterol 47 < 100 mg/dL HDL Cholesterol 41 40-59 mg/dL Magnesium Level 2.0 1.6-2.6 mg/dL White Blood Count 9.9 # 4.4-10.8 10^3/uL Red Blood Count 4.63 4.5-5.90 10^6/uL Hemoglobin 14.0 13.5-17.5 g/dL Hematocrit 40.8 #L 41.0-53.0 % Mean Corpuscular Volume 88.0 80.0-100.0 fL Mean Corpuscular Hemoglobin 30.2 28.0-32.0 pg Mean Corpuscular Hemoglobin Concent 34.3 32.0-36.0 g/dL Red Cell Distribution Width 14.9 H 11.8-14.3 % Platelet Count 356 140-450 10^3/uL Mean Platelet Volume 7.8 6.9-10.8 fL Neutrophils (%) (Auto) 67.9 37.0-80.0 % Lymphocytes (%) (Auto) 21.7 10.0-50.0 % Monocytes (%) (Auto) 8.0 0.0-12.0 % Eosinophils (%) (Auto) 1.4 0.0-7.0 % Basophils (%) (Auto) 1.0 0.0-2.0 % Neutrophils # (Auto) 6.7 1.6-8.6 10 ^3/uL Lymphocytes # (Auto) 2.1 0.4-5.4 10 ^3/uL Monocytes # (Auto) 0.8 0-1.3 10 ^3/uL Eosinophils # (Auto) 0.1 0-0.8 10 ^3/uL Basophils # (Auto) 0.1 0-0.2 10 ^3/uL Nucleated Red Blood Cells 0.2 % B-Type Natriuretic Peptide 158.60 0-100 pg/mL Assessment Patient is a 64-year-old male presents to the hospital with: Right hand wound cellulitis Acute CHF exacerbation Chronic kidney disease Hypokalemia Shortness of breath Decompensated heart failure. Atrial fibrillation with rapid ventricular response. Recommendations: Imaging reveals cellulitis of right hand with wound follow wound culture advise against use of Neosporin wound care lasix, continue, Vancomycin [Started 06/16] Ceftriaxone [Started 06/16] Reviewed WBC and Lactate which is normal 06/16, CT right hand showed: Soft tissue swelling in the forearm and hand which may reflect cellulitis. Prominence of the skin overlying the 4th finger which ma y reflect ulceration or other wound. No CT evidence of acute osseous abnormality. 06/15, Chest x-ray showed: Mild interstitial pulmonary edema in the setting of cardiomegaly. Questionable trace bilateral pleural effusions Thank you for consult. Plan discussed with: LASHON Davison MD Jun 17, 2024 17:33
--- NOTE | 2024-06-17 17:56 | DVHPN2 ---
Subjective Patient was feeling much better. Reviewed: Care Plan Changes from previous H/P or p: No Changes Objective Vitals Vital Signs Date Time Temp Pulse Resp B/P (MAP) Pulse Ox O2 Delivery O2 Flow Rate FiO2 06/17/24 16:29 115 18 94 Room Air* 0 21 06/17/24 16:29 98.1 158/93 (114) 98.1 Intake/Output Intake and Output 06/17/24 07:00 Intake Total 1170 ml Output Total 1450 ml Balance -280 ml Intake Oral 420 ml IV Total 750 ml Output Urine Total 1450 ml Exam HEENT pupils are reactive Neck is supple CV is S1-S2 irregular regular rate and rhythm Respiratory bilateral diminished breath sound bases GI posterior bowel sounds Extremity 2+ pitting edema 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 Medications Current Medications Medications Dose Ordered Sig/Juan Manuel Route Start Time Stop Time Status Last Admin Dose Admin Nitroglycerin 0.4 mg Q5MINP PRN SL 06/16/24 02:30 Morphine Sulfate 2 mg Q30M PRN IV 06/16/24 02:30 Ondansetron HCl 4 mg Q6HP PRN IV 06/16/24 02:30 Aspirin 81 mg DAILY PO 06/16/24 02:30 06/17/24 10:22 81 MG Atorvastatin Calcium 40 mg HS PO 06/16/24 22:00 06/16/24 22:24 40 MG Acetaminophen/ Hydrocodone Bitart 1 tab Q6HPRN PRN PO 06/16/24 02:30 06/16/24 09:51 1 TAB Famotidine 20 mg DAILY PO 06/16/24 10:00 06/17/24 10:23 20 MG Acetaminophen 650 mg Q6HPRN PRN PO 06/16/24 02:30 Furosemide 40 mg BID IV 06/16/24 10:00 06/17/24 10:27 40 MG Vancomycin HCl 0 ml @ 0 mls/hr UD IV 06/16/24 06:00 Ceftriaxone Sodium 50 ml @ 100 mls/hr DAILY@0900 IV 06/16/24 06:00 06/17/24 10:26 100 MLS/HR Vancomycin HCl 250 ml @ 250 mls/hr Q12H IV 06/16/24 19:00 06/17/24 07:06 250 MLS/HR Enoxaparin Sodium 100 mg Q12H SC 06/16/24 21:00 06/17/24 10:25 100 MG Metoprolol Tartrate 25 mg BID PO 06/17/24 10:00 06/17/24 10:23 25 MG Laboratory Results Laboratory Tests 06/15/24 22:33 06/17/24 03:44 Chemistry Test 06/17/24 03:44 Calcium Level 10.0 mg/dL (8.7-10.4) Assessment/Plan Assessment/Plan 64-year-old male with a known history of chronic AFib congestive heart failure initiation with the hospital with increasing shortness breath found to have 1. Acute CHF exacerbation 2. AFib with a RVR 3. Hypertension 4. Diabetes mellitus type 2 5. Right hand cellulitis with open wound -continue IV diuretics, continue therapeutic Lovenox for primary prevention of stroke, follow up 2D echo and cardiology consultation -wound care for right hand mood. Plan discussed with: Patient Date of Service: Jun 17, 2024 Billing Provider: CELI AGUDELO MD Common Visit Codes: NOT BILLABLE CELI AGUDELO MD Jun 17, 2024 17:56
--- NOTE | 2024-06-17 18:45 | DVHPN2 ---
Subjective Patient has stated feeling better. Reviewed: Care Plan Changes from previous H/P or p: No Changes Objective Vitals Vital Signs Date Time Temp Pulse Resp B/P (MAP) Pulse Ox O2 Delivery O2 Flow Rate FiO2 06/17/24 16:29 115 18 94 Room Air* 0 21 06/17/24 16:29 98.1 158/93 (114) 98.1 Intake/Output Intake and Output 06/17/24 07:00 Intake Total 1170 ml Output Total 1450 ml Balance -280 ml Intake Oral 420 ml IV Total 750 ml Output Urine Total 1450 ml Medications Current Medications Medications Dose Ordered Sig/Juan Manuel Route Start Time Stop Time Status Last Admin Dose Admin Nitroglycerin 0.4 mg Q5MINP PRN SL 06/16/24 02:30 Morphine Sulfate 2 mg Q30M PRN IV 06/16/24 02:30 Ondansetron HCl 4 mg Q6HP PRN IV 06/16/24 02:30 Aspirin 81 mg DAILY PO 06/16/24 02:30 06/17/24 10:22 81 MG Atorvastatin Calcium 40 mg HS PO 06/16/24 22:00 06/16/24 22:24 40 MG Acetaminophen/ Hydrocodone Bitart 1 tab Q6HPRN PRN PO 06/16/24 02:30 06/16/24 09:51 1 TAB Famotidine 20 mg DAILY PO 06/16/24 10:00 06/17/24 10:23 20 MG Acetaminophen 650 mg Q6HPRN PRN PO 06/16/24 02:30 Furosemide 40 mg BID IV 06/16/24 10:00 06/17/24 10:27 40 MG Vancomycin HCl 0 ml @ 0 mls/hr UD IV 06/16/24 06:00 Ceftriaxone Sodium 50 ml @ 100 mls/hr DAILY@0900 IV 06/16/24 06:00 06/17/24 10:26 100 MLS/HR Vancomycin HCl 250 ml @ 250 mls/hr Q12H IV 06/16/24 19:00 06/17/24 07:06 250 MLS/HR Enoxaparin Sodium 100 mg Q12H SC 06/16/24 21:00 06/17/24 10:25 100 MG Metoprolol Tartrate 25 mg BID PO 06/17/24 10:00 06/17/24 10:23 25 MG Laboratory Results Laboratory Tests 06/15/24 22:33 06/17/24 03:44 Chemistry Test 06/17/24 03:44 Calcium Level 10.0 mg/dL (8.7-10.4) Assessment/Plan Plan discussed with: Patient CELI AGUDELO MD Jun 17, 2024 18:45
[2024-06-17 20:00] VITALS: PULSE 100; PULSE 95; RESP 18; O2SAT 95
[2024-06-17 21:00] VITALS: BP 137/76; PULSE 92; RESP 20; TEMP 98.2; O2SAT 98
[2024-06-18] VITALS (8 sets, daily range): BP systolic 127–145; BP diastolic 70–100; PULSE 96–135; RESP 16–20; TEMP 97.3–98.4; O2SAT 93–99
[2024-06-18 07:20] LABS: Sodium 137 mmol/L (136-145)
[2024-06-18 07:21] LABS: Anion Gap 9 (5-15); Carbon Dioxide 30 mmol/L (20-31)
[2024-06-18 07:22] LABS: Calcium 8.8 mg/dL (8.7-10.4)
[2024-06-18 07:27] LABS: BUN/Creatinine Ratio 13.7 (10.0-20.0); Blood Urea Nitrogen 16 mg/dL (9-23); Chloride 98 mmol/L (98-107); Glucose 110 mg/dL (74-106); Potassium 3.2 mmol/L (3.5-5.1)
--- NOTE | 2024-06-18 13:13 | DVHPN2 ---
Subjective Fairly complaining of shortness of breaths. 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 Current Medications Medications Dose Ordered Sig/Juan Manuel Route Start Time Stop Time Status Last Admin Dose Admin Nitroglycerin 0.4 mg Q5MINP PRN SL 06/16/24 02:30 Morphine Sulfate 2 mg Q30M PRN IV 06/16/24 02:30 Ondansetron HCl 4 mg Q6HP PRN IV 06/16/24 02:30 Aspirin 81 mg DAILY PO 06/16/24 02:30 06/18/24 08:09 81 MG Atorvastatin Calcium 40 mg HS PO 06/16/24 22:00 06/17/24 21:33 40 MG Acetaminophen/ Hydrocodone Bitart 1 tab Q6HPRN PRN PO 06/16/24 02:30 06/18/24 06:40 1 TAB Famotidine 20 mg DAILY PO 06/16/24 10:00 06/18/24 08:09 20 MG Acetaminophen 650 mg Q6HPRN PRN PO 06/16/24 02:30 Furosemide 40 mg BID IV 06/16/24 10:00 06/18/24 08:08 40 MG Vancomycin HCl 0 ml @ 0 mls/hr UD IV 06/16/24 06:00 Ceftriaxone Sodium 50 ml @ 100 mls/hr DAILY@0900 IV 06/16/24 06:00 06/18/24 08:10 100 MLS/HR Vancomycin HCl 250 ml @ 250 mls/hr Q12H IV 06/16/24 19:00 06/18/24 08:06 250 MLS/HR Enoxaparin Sodium 100 mg Q12H SC 06/16/24 21:00 06/18/24 08:10 100 MG Metoprolol Tartrate 25 mg BID PO 06/17/24 10:00 06/18/24 08:09 25 MG Laboratory Results Laboratory Tests 06/15/24 22:33 06/18/24 06:15 Chemistry Test 06/18/24 06:15 Calcium Level 8.8 mg/dL (8.7-10.4) Assessment/Plan Assessment/Plan 64-year-old male with a known history of chronic AFib congestive heart failure initiation with the hospital with increasing shortness breath found to have 1. Acute CHF exacerbation 2. AFib with a RVR 3. Hypertension 4. Diabetes mellitus type 2 5. Right hand cellulitis with open wound -continue IV diuretics, continue therapeutic Lovenox for primary prevention of stroke, follow up 2D echo and cardiology consultation -wound care for right hand mood. 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
--- NOTE | 2024-06-18 15:24 | DVHPN2 ---
Progress Note - Dictate Date Seen: Jun 18, 2024 Medical Necessity Reason Pt with a Central, PICC or Fol: No Subjective No new acute complaints noted at this time. Vancomycin trough is pending vital signs Vital Sign Date Time Temp Pulse Resp B/P (MAP) Pulse Ox O2 Delivery O2 Flow Rate FiO2 06/18/24 13:00 97.3 96 18 133/86 (102) 97 97.3 06/18/24 08:00 Room Air* 0 21 Total Intake and Output 06/17/24 06/17/24 06/18/24 15:00 23:00 07:00 Intake Total 300 ml 250 ml 800 ml Balance 300 ml 250 ml 800 ml medications Current Medications Medications Dose Ordered Sig/Juan Manuel Route Start Time Stop Time Status Last Admin Dose Admin Nitroglycerin 0.4 mg Q5MINP PRN SL 06/16/24 02:30 Morphine Sulfate 2 mg Q30M PRN IV 06/16/24 02:30 Ondansetron HCl 4 mg Q6HP PRN IV 06/16/24 02:30 Aspirin 81 mg DAILY PO 06/16/24 02:30 06/18/24 08:09 81 MG Atorvastatin Calcium 40 mg HS PO 06/16/24 22:00 06/17/24 21:33 40 MG Acetaminophen/ Hydrocodone Bitart 1 tab Q6HPRN PRN PO 06/16/24 02:30 06/18/24 13:22 1 TAB Famotidine 20 mg DAILY PO 06/16/24 10:00 06/18/24 08:09 20 MG Acetaminophen 650 mg Q6HPRN PRN PO 06/16/24 02:30 Furosemide 40 mg BID IV 06/16/24 10:00 06/18/24 08:08 40 MG Vancomycin HCl 0 ml @ 0 mls/hr UD IV 06/16/24 06:00 Ceftriaxone Sodium 50 ml @ 100 mls/hr DAILY@0900 IV 06/16/24 06:00 06/18/24 08:10 100 MLS/HR Vancomycin HCl 250 ml @ 250 mls/hr Q12H IV 06/16/24 19:00 06/18/24 08:06 250 MLS/HR Enoxaparin Sodium 100 mg Q12H SC 06/16/24 21:00 06/18/24 08:10 100 MG Metoprolol Tartrate 25 mg BID PO 06/17/24 10:00 06/18/24 08:09 25 MG objective General Appeara: Well developed, Well nourished Head Exam: Normal inspection Neck Exam: Normal inspection, Non-tender, Normal alignment Eye Exam: bilateral eye Normal inspection, bilateral eye PERRL, bilateral eye EOMI Ear Exam: bilateral ear Auricle normal Nasal Exam: Normal inspection Mouth: Normal Inspection Pulmonary/Respiratory: Normal inspection, Normal breath sounds, Chest non- tender, Lungs clear Cardiovascular/Chest: Normal inspection, Edema (bilateral lower extremity edema), Regular rate, Normal Rhythm Abdominal Exam: Normal bowel sounds, Soft, No tenderness Legs: bilateral leg swelling 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 Atrial fibrillation with rapid ventricular response. Recommendations: Imaging reveals cellulitis of right hand with wound Follow wound culture advise against use of Neosporin wound care lasix, 06/18, Wound culture showed Beta-Hemolytic Group A Streptococcus discontinue Vancomycin [Started 06/16] continue Ceftriaxone [Started 06/16] Reviewed WBC and Lactate which is normal 06/16, CT right hand showed: Soft tissue swelling in the forearm and hand which may reflect cellulitis. Prominence of the skin overlying the 4th finger which may reflect ulceration or other wound. No CT evidence of acute osseous abnormality. 06/15, Chest x-ray showed: Mild interstitial pulmonary edema in the setting of cardiomegaly. Questionable trace bilateral pleural effusions Thank you for consult. Dietary Evaluation Review Comments: Needs asssistance in cutting up meats for him, or order mechanical soft with chopped meats. Expected Outcomes/Goals: Improved nutrition related lab values, gradual weigh tloss. Plan discussed with: LASHON Davison MD Jun 18, 2024 15:24
[2024-06-19] VITALS (8 sets, daily range): BP systolic 118–164; BP diastolic 71–98; PULSE 89–125; RESP 18–24; TEMP 97.3–97.9; O2SAT 94–99
--- NOTE | 2024-06-19 06:09 | DVHINCON2 ---
Date of service: Jun 18, 2024 Reason for Consultation Bilateral hand cellulitis History of Present Illness 64 yo M admitted for sob with BL hand swelling with wound x 1 week. No fever or chills or cp. Allergies: Coded Allergies: NO KNOWN ALLERGIES (Unverified , 06/11/24) Home Meds Reported Medications Insulin Glargine (Lantus Solostar) 100 Unit/Ml Inj, UNIT SC UD for 50 Days, #15 06/17/24 Semaglutide (Ozempic) 8 Mg/3 Ml Inj, MG SC UD for 28 Days, #3 06/17/24 Digoxin (Digoxin) 125 Mcg Tab, 1 TAB PO DAILY for 90 Days, #90 06/17/24 Rosuvastatin Calcium (Crestor) 20 Mg Tab, 1 TAB PO DAILY for 90 Days, #90 06/17/24 Eqrrv-9-Ylcr Ethyl Esters (Rzpco-4-Ugef Ethyl Esters) 1 Gm Cap, 2 CAP PO BID for 30 Days, #120 06/17/24 Losartan Potassium (Losartan Potassium) 25 Mg Tab, 1 TAB PO DAILY for 100 Days, #100 06/17/24 Carvedilol (Carvedilol) 3.125 Mg Tab, 1 TAB PO BID for 100 Days, #200 06/17/24 Dapagliflozin Propanediol (Farxiga) 10 Mg Tab, 5 MG PO DAILY for 30 Days, #30 06/17/24 Furosemide (Furosemide) 20 Mg Tab, 1 TAB PO DAILY for 100 Days, #100 06/17/24 Rivaroxaban (Xarelto Tablet) 20 Mg Tb, 1 TAB PO DAILY for 30 Days, #30 06/17/24 Metformin Hydrochloride (Metformin Hcl) 500 Mg Tab, 1 TAB PO BID for 30 Days, #60 06/17/24 Review of Systems as per HPI Vital Signs Vital Signs Date Time Temp Pulse Resp B/P (MAP) Pulse Ox O2 Delivery O2 Flow Rate FiO2 06/19/24 01:00 89 18 118/71 (87) 94 06/18/24 21:00 98.4 98.4 06/18/24 20:00 Room Air* 0 21 Physical Exam BL UE: erythema at hands; no active drainage FROM at hand Labs/Diagnostic Data Labs Test 06/18/24 06:15 06/16/24 23:53 06/16/24 20:01 06/16/24 07:56 Range/Units Sodium Level 137 136-145 mmol/L Potassium Level 3.2 L 3.5-5.1 mmol/L Chloride Level 98 98-107 mmol/L Carbon Dioxide Level 30 20-31 mmol/L Anion Gap 9 5-15 Blood Urea Nitrogen 16 9-23 mg/dL Creatinine 1.17 0.700-1.30 mg/dL Glomerular Filtration Rate Calc 70 >90 mL/min BUN/Creatinine Ratio 13.7 10.0-20.0 Serum Glucose 110 H 74-106 mg/dL Calcium Level 8.8 8.7-10.4 mg/dL Vancomycin Level Trough 10.8 H 5-10 ug/mL Urine Opiates Screen Neg NEGATIVE Urine Fentanyl Screen Neg NEGATIVE Urine Barbiturates Screen Neg NEGATIVE Urine Phencyclidine Screen Neg NEGATIVE Urine Amphetamines Screen Neg NEGATIVE Urine Benzodiazepines Screen Neg NEGATIVE Urine Cocaine Screen Neg NEGATIVE Urine Cannabinoids Screen Neg NEGATIVE Troponin I High Sensitivity 48 </=54 ng/L Lactic Acid Level 1.3 0.4-2.0 mmol/L Test 06/16/24 04:38 06/16/24 01:25 06/15/24 22:33 Range/Units Erythrocyte Sedimentation Rate 65 H 0-20 mm/hr Triglycerides Level 94 < 150 mg/dL Cholesterol Level 106 < 200 mg/dL LDL Cholesterol 47 < 100 mg/dL HDL Cholesterol 41 40-59 mg/dL Magnesium Level 2.0 1.6-2.6 mg/dL White Blood Count 9.9 # 4.4-10.8 10^3/uL Red Blood Count 4.63 4.5-5.90 10^6/uL Hemoglobin 14.0 13.5-17.5 g/dL Hematocrit 40.8 #L 41.0-53.0 % Mean Corpuscular Volume 88.0 80.0-100.0 fL Mean Corpuscular Hemoglobin 30.2 28.0-32.0 pg Mean Corpuscular Hemoglobin Concent 34.3 32.0-36.0 g/dL Red Cell Distribution Width 14.9 H 11.8-14.3 % Platelet Count 356 140-450 10^3/uL Mean Platelet Volume 7.8 6.9-10.8 fL Neutrophils (%) (Auto) 67.9 37.0-80.0 % Lymphocytes (%) (Auto) 21.7 10.0-50.0 % Monocytes (%) (Auto) 8.0 0.0-12.0 % Eosinophils (%) (Auto) 1.4 0.0-7.0 % Basophils (%) (Auto) 1.0 0.0-2.0 % Neutrophils # (Auto) 6.7 1.6-8.6 10 ^3/uL Lymphocytes # (Auto) 2.1 0.4-5.4 10 ^3/uL Monocytes # (Auto) 0.8 0-1.3 10 ^3/uL Eosinophils # (Auto) 0.1 0-0.8 10 ^3/uL Basophils # (Auto) 0.1 0-0.2 10 ^3/uL Nucleated Red Blood Cells 0.2 % B-Type Natriuretic Peptide 158.60 0-100 pg/mL Microbiology Date/Time Source Procedure Growth Status 06/17/24 11:45 Hand Right Gram Stain - Final Resulted 06/17/24 11:45 Hand Right Wound Culture - Preliminary Resulted Plan/Recommendation 64 yo M with BL hand cellulitis 1. Transition to oral abx 2. daily dressing changes 3. no plans for surgery 4. okay to me home from ortho standpoint Plan discussed with: Patient DANILO SPEARS MD Jun 19, 2024 06:08
[2024-06-19] MEDS: FUROSEMIDE 40 MG/4 ML VIAL IV SCH (09:26)
[2024-06-19] MEDS: POTASSIUM CHLORIDE 40 MEQ, LIDOCAINE 1% (LOCAL ANESTH.) 4 ML in SODIUM CHL 0.9% 250 ML IV ONE (10:55)
--- NOTE | 2024-06-19 16:18 | DVHPN2 ---
Progress Note - Dictate Date Seen: Jun 19, 2024 Medical Necessity Reason Pt with a Central, PICC or Fol: No Subjective Patient reports pain in hands from the wound. tachycardia, Patient wants to leave AMA. Vancomycin trough is pending vital signs Vital Sign Date Time Temp Pulse Resp B/P (MAP) Pulse Ox O2 Delivery O2 Flow Rate FiO2 06/19/24 09:26 141/79 06/19/24 09:26 98 06/19/24 09:00 97.4 24 95 97.4 06/19/24 08:00 Room Air* 0 21 Total Intake and Output 06/18/24 06/18/24 06/19/24 15:00 23:00 07:00 Intake Total 300 ml 1734 ml 575 ml Output Total 1000 ml 600 ml Balance 300 ml 734 ml -25 ml medications Current Medications Medications Dose Ordered Sig/Juan Manuel Route Start Time Stop Time Status Last Admin Dose Admin Nitroglycerin 0.4 mg Q5MINP PRN SL 06/16/24 02:30 Morphine Sulfate 2 mg Q30M PRN IV 06/16/24 02:30 Ondansetron HCl 4 mg Q6HP PRN IV 06/16/24 02:30 Aspirin 81 mg DAILY PO 06/16/24 02:30 06/19/24 09:27 81 MG Atorvastatin Calcium 40 mg HS PO 06/16/24 22:00 06/18/24 22:01 40 MG Acetaminophen/ Hydrocodone Bitart 1 tab Q6HPRN PRN PO 06/16/24 02:30 06/19/24 10:43 1 TAB Famotidine 20 mg DAILY PO 06/16/24 10:00 06/19/24 09:27 20 MG Acetaminophen 650 mg Q6HPRN PRN PO 06/16/24 02:30 Ceftriaxone Sodium 50 ml @ 100 mls/hr DAILY@0900 IV 06/16/24 06:00 06/19/24 09:19 100 MLS/HR Enoxaparin Sodium 100 mg Q12H SC 06/16/24 21:00 06/19/24 09:29 100 MG Furosemide 40 mg BID@0600,1800 IV 06/19/24 08:23 06/19/24 09:26 40 MG Metoprolol Tartrate 50 mg BID PO 06/19/24 22:00 objective General Appeara: Well developed, Well nourished Head Exam: Normal inspection Neck Exam: Normal inspection, Non-tender, Normal alignment Eye Exam: bilateral eye Normal inspection, bilateral eye PERRL, bilateral eye EOMI Ear Exam: bilateral ear Auricle normal Nasal Exam: Normal inspection Mouth: Normal Inspection Pulmonary/Respiratory: Normal inspection, Normal breath sounds, Chest non- tender, Lungs clear Cardiovascular/Chest: Normal inspection, Edema (bilateral lower extremity edema), Regular rate, Normal Rhythm Abdominal Exam: Normal bowel sounds, Soft, No tenderness Legs: bilateral leg 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 Atrial fibrillation with rapid ventricular response. Recommendations: Imaging reveals cellulitis of right hand with wound reviewed wound culture advise against use of Neosporin wound care lasix, seen by ortho, no intervention recommended 06/18, Wound culture showed Beta-Hemolytic Group A Streptococcus Continue Ceftriaxone [Started 06/16], at the time of discharge recommended Amoxicillin 500mg TID for 5-7 days with wound care/ elevate arms negative fluid balance out pt wound care follow up or HH Reviewed WBC and Lactate which is normal 06/16, CT right hand showed: Soft tissue swelling in the forearm and hand which may reflect cellulitis. Prominence of the skin overlying the 4th finger which may reflect ulceration or other wound. No CT evidence of acute osseous abnormality. Thank you for consult. Dietary Evaluation Review Comments: Needs asssistance in cutting up meats for him, or order mechanical soft with chopped meats. Expected Outcomes/Goals: Improved nutrition related lab values, gradual weigh tloss. Plan discussed with: LASHON Davison MD Jun 19, 2024 16:18
--- NOTE | 2024-06-19 16:55 | DVHPN2 ---
Subjective Patient's heart rate goes into 120s. Beta pelon has been increased. Reviewed: Care Plan Changes from previous H/P or p: No Changes Objective Vitals Vital Signs Date Time Temp Pulse Resp B/P (MAP) Pulse Ox O2 Delivery O2 Flow Rate FiO2 06/19/24 09:26 141/79 06/19/24 09:26 98 06/19/24 09:00 97.4 24 95 97.4 06/19/24 08:00 Room Air* 0 21 Intake/Output Intake and Output 06/19/24 07:00 Intake Total 2609 ml Output Total 1600 ml Balance 1009 ml Intake Oral 2309 ml IV Total 300 ml Output Urine Total 1600 ml Exam HEENT pupils are reactive Neck is supple CV is S1-S2 irregular regular rate and rhythm Respiratory bilateral diminished breath sound bases GI posterior bowel sounds Extremity 2+ pitting edema GUIDANCE DIRECTOR no motor Medications Current Medications Medications Dose Ordered Sig/Juan Manuel Route Start Time Stop Time Status Last Admin Dose Admin Nitroglycerin 0.4 mg Q5MINP PRN SL 06/16/24 02:30 Morphine Sulfate 2 mg Q30M PRN IV 06/16/24 02:30 Ondansetron HCl 4 mg Q6HP PRN IV 06/16/24 02:30 Aspirin 81 mg DAILY PO 06/16/24 02:30 06/19/24 09:27 81 MG Atorvastatin Calcium 40 mg HS PO 06/16/24 22:00 06/18/24 22:01 40 MG Acetaminophen/ Hydrocodone Bitart 1 tab Q6HPRN PRN PO 06/16/24 02:30 06/19/24 10:43 1 TAB Famotidine 20 mg DAILY PO 06/16/24 10:00 06/19/24 09:27 20 MG Acetaminophen 650 mg Q6HPRN PRN PO 06/16/24 02:30 Ceftriaxone Sodium 50 ml @ 100 mls/hr DAILY@0900 IV 06/16/24 06:00 06/19/24 09:19 100 MLS/HR Enoxaparin Sodium 100 mg Q12H SC 06/16/24 21:00 06/19/24 09:29 100 MG Furosemide 40 mg BID@0600,1800 IV 06/19/24 08:23 06/19/24 09:26 40 MG Metoprolol Tartrate 50 mg BID PO 06/19/24 22:00 Laboratory Results Laboratory Tests 06/15/24 22:33 06/18/24 06:15 Microbiology Microbiology Date/Time Source Procedure Growth Status 06/17/24 11:45 Hand Right Gram Stain - Final Resulted 06/17/24 11:45 Hand Right Wound Culture - Preliminary Resulted Assessment/Plan Assessment/Plan 64-year-old male with a known history of chronic AFib congestive heart failure initiation with the hospital with increasing shortness breath found to have 1. Acute CHF exacerbation 2. AFib with a RVR 3. Hypertension 4. Diabetes mellitus type 2 5. Right hand cellulitis with open wound -increase metoprolol tartrate to 50 mg p.o. twice a day -continue IV diuretics, continue therapeutic Lovenox for primary prevention of stroke, follow up 2D echo and cardiology consultation -wound care for right hand mood. Plan discussed with: Patient My Orders Orders - CELI AGUDELO MD Procedure Category Date Status Time Metoprolol Tartrate PHA 06/19/24 In Process Tablet (Lopressor Ta 22:00 *Tele Psych Consult CONS 06/19/24 Transmitted 14:44 Date of Service: Jun 19, 2024 Billing Provider: CELI AGUDELO MD Common Visit Codes: NOT BILLABLE CELI AGUDELO MD Jun 19, 2024 16:55
--- NOTE | 2024-06-19 21:19 | DVHINCON2 ---
Date of Service if different f: Jun 19, 2024 Consultation ([place]) Labs Laboratory Tests Test 06/15/24 22:33 06/16/24 01:25 06/16/24 04:38 06/16/24 07:56 White Blood Count 9.9 10^3/uL (4.4-10.8) Red Blood Count 4.63 10^6/uL (4.5-5.90) Hemoglobin 14.0 g/dL (13.5-17.5) Hematocrit 40.8 % (41.0-53.0) Mean Corpuscular Volume 88.0 fL (80.0-100.0) Mean Corpuscular Hemoglobin 30.2 pg (28.0-32.0) Mean Corpuscular Hemoglobin Concent 34.3 g/dL (32.0-36.0) Red Cell Distribution Width 14.9 % (11.8-14.3) Platelet Count 356 10^3/uL (140-450) Mean Platelet Volume 7.8 fL (6.9-10.8) Neutrophils (%) (Auto) 67.9 % (37.0-80.0) Lymphocytes (%) (Auto) 21.7 % (10.0-50.0) Monocytes (%) (Auto) 8.0 % (0.0-12.0) Eosinophils (%) (Auto) 1.4 % (0.0-7.0) Basophils (%) (Auto) 1.0 % (0.0-2.0) Neutrophils # (Auto) 6.7 10 ^3/uL (1.6-8.6) Lymphocytes # (Auto) 2.1 10 ^3/uL (0.4-5.4) Monocytes # (Auto) 0.8 10 ^3/uL (0-1.3) Eosinophils # (Auto) 0.1 10 ^3/uL (0-0.8) Basophils # (Auto) 0.1 10 ^3/uL (0-0.2) Nucleated Red Blood Cells 0.2 % B-Type Natriuretic Peptide 158.60 pg/mL (0-100) Magnesium Level 2.0 mg/dL (1.6-2.6) Erythrocyte Sedimentation Rate 65 mm/hr (0-20) Triglycerides Level 94 mg/dL (< 150) Cholesterol Level 106 mg/dL (< 200) LDL Cholesterol 47 mg/dL (< 100) HDL Cholesterol 41 mg/dL (40-59) Lactic Acid Level 1.3 mmol/L (0.4-2.0) Test 06/16/24 20:01 06/16/24 23:53 06/18/24 06:15 Troponin I High Sensitivity 48 ng/L (</=54) Urine Opiates Screen Neg (NEGATIVE) Urine Fentanyl Screen Neg (NEGATIVE) Urine Barbiturates Screen Neg (NEGATIVE) Urine Phencyclidine Screen Neg (NEGATIVE) Urine Amphetamines Screen Neg (NEGATIVE) Urine Benzodiazepines Screen Neg (NEGATIVE) Urine Cocaine Screen Neg (NEGATIVE) Urine Cannabinoids Screen Neg (NEGATIVE) Sodium Level 137 mmol/L (136-145) Potassium Level 3.2 mmol/L (3.5-5.1) Chloride Level 98 mmol/L (98-107) Carbon Dioxide Level 30 mmol/L (20-31) Anion Gap 9 (5-15) Blood Urea Nitrogen 16 mg/dL (9-23) Creatinine 1.17 mg/dL (0.700-1.30) Glomerular Filtration Rate Calc 70 mL/min (>90) BUN/Creatinine Ratio 13.7 (10.0-20.0) Serum Glucose 110 mg/dL (74-106) Calcium Level 8.8 mg/dL (8.7-10.4) Vancomycin Level Trough 10.8 ug/mL (5-10) Microbiology Date/Time Source Procedure Growth Status 06/17/24 11:45 Hand Right Gram Stain - Final Resulted 06/17/24 11:45 Hand Right Wound Culture - Preliminary Resulted Appetite: Good Appearance: Stated age Psychomotor activity: WNL Behavioral: Cooperative Eye contact: Appropriate Speech: WNL Affect: Guarded Mood: Euthymic Thought processes: Linear/Goal-directed Thought content: WNL Suicidal ideations: Absent Homicidal ideations: Absent Orientation: Person, Place, Time, Situation Memory intact: Recent Intellect: Average Abstractability: WNL Concentration: Adequate Attention: Adequate Judgement: WNL Insight: Marginal Vitals Vital Signs Date Time Temp Pulse Resp B/P (MAP) Pulse Ox O2 Delivery O2 Flow Rate FiO2 06/19/24 17:45 126/84 06/19/24 17:00 97.9 96 20 96 97.9 06/19/24 08:00 Room Air* 0 21 Current medications Current Medications Medications Dose Ordered Sig/Juan Manuel Route Start Time Stop Time Status Last Admin Dose Admin Nitroglycerin 0.4 mg Q5MINP PRN SL 06/16/24 02:30 Morphine Sulfate 2 mg Q30M PRN IV 06/16/24 02:30 Ondansetron HCl 4 mg Q6HP PRN IV 06/16/24 02:30 Aspirin 81 mg DAILY PO 06/16/24 02:30 06/19/24 09:27 81 MG Atorvastatin Calcium 40 mg HS PO 06/16/24 22:00 06/18/24 22:01 40 MG Acetaminophen/ Hydrocodone Bitart 1 tab Q6HPRN PRN PO 06/16/24 02:30 06/19/24 10:43 1 TAB Famotidine 20 mg DAILY PO 06/16/24 10:00 06/19/24 09:27 20 MG Acetaminophen 650 mg Q6HPRN PRN PO 06/16/24 02:30 Ceftriaxone Sodium 50 ml @ 100 mls/hr DAILY@0900 IV 06/16/24 06:00 06/19/24 09:19 100 MLS/HR Enoxaparin Sodium 100 mg Q12H SC 06/16/24 21:00 06/19/24 09:29 100 MG Furosemide 40 mg BID@0600,1800 IV 06/19/24 08:23 06/19/24 17:45 40 MG Metoprolol Tartrate 50 mg BID PO 06/19/24 22:00 Medication adjusted: No Diagnosis: unspecified psychosis, alcohol abuse Plan : Pt denies suicidal/homicidal ideation and does have a viable self-care plan. He could have substance-induced psychosis, but denies. He is likely m inimizing his alcohol use. Collateral from family would be helpful. Patient does not appear to meet LPS hold criteria at this time and may be discharged after medical clearance. History of Present Illness Reason for Consult : Per nurse, delusional thoughts HPI : This is a 64-year-old male with unknown prior psychiatric history who presented to the hospital for CHF exacerbation. Patient is evaluated via telepsychiatry. He reports coming to the hospital after both of his legs were sw ollen and being out of Lasix. He reports not feeling like he is getting the best care here. He reports complaining of ringing in his ears for the past 6 days and no one has cared to look. He denies reporting that staff was trying to harm him. He does report, last night, he felt his body cramp up after receiving his medications. He denies thoughts of people wanting to hurt or kill him. He reports living with sister for the past 5 years and recently, they had a disagreement regarding their political affiliation and sister asked him to leave but changed her mind. He reports later decided he no longer wants to live with sister who voted for a racist. He reports moving out from sister's house on May 27. He is now sleeping in a storage facility where his belongings are stored. He He denies feeling depressed or anhedonia. He reports good appetite and sleep when not experiencing pain. He denies auditory/visual hallucinations or paranoia. He has no signs of responding to unseen stimuli. He denies suicidal or homicidal ideation. He is future-oriented He reports having a friend who lives in [place] who has asked him to move in. He has already purchased bus ticket before he became ill. His plan is to move to [place] once discharged from hospital. Past Psychiatric History : He denies past psych admissions or 5150holds. He also denies past psychiatric diagnosis. He denies current or past outpatient mental health follow up. He reports hx of polysubstance abuse of meth, cocaine, marijuana and alcohol. He reports being sober since completing rehab in 2011. He does continue drink alcohol twice per week. He denies hx of being prescribed psychotropic medications. Past Medical History : Hx of CHF, diabetes, HTN Social History : He was living with sister for the past 5 yrs, paying her $750 per month in rent and now living in storage facility for 3 weeks. He is single, has a 16-year old son living with his mother and an adult daughter. He is receiving SSI disability since 2018, $1230 per month. He reports drinking 15 beers Sunday and Sunday while watching football. He has used alcohol since age 18. He denies current use of other substances. His toxicology is negative for substances. He reports paternal grandmother probably had psychosis. He denies other known family history of psychiatric problems. [facility] Jun 19, 2024 21:19
[2024-06-19] MEDS: METOPROLOL TARTRATE 25 MG TAB PO SCH (22:31)
[2024-06-20 01:00] VITALS: BP 110/61; PULSE 98; RESP 18; TEMP 97.5; O2SAT 95
[2024-06-20 05:00] VITALS: BP 127/77; PULSE 102; RESP 18; TEMP 97.7; O2SAT 95
[2024-06-20 08:00] VITALS: PULSE 106; PULSE 96; RESP 19; O2SAT 96
[2024-06-20 09:00] VITALS: BP 129/78; PULSE 105; RESP 17; TEMP 97.6; O2SAT 92
[2024-06-20 12:48] VITALS: BP 112/75; PULSE 95; RESP 17; TEMP 98.3; O2SAT 95
[2024-06-20] MEDS ORDERED: AMOX500C2 PO (14:46)
[2024-06-20 15:37] LABS: Anion Gap 8 (5-15); Calcium 9.9 mg/dL (8.7-10.4); Carbon Dioxide 28 mmol/L (20-31)
[2024-06-20 15:40] VITALS: BP 112/75; PULSE 95; RESP 17; TEMP 98.3; O2SAT 96
[2024-06-20 15:42] LABS: BUN/Creatinine Ratio 17.3 (10.0-20.0); Blood Urea Nitrogen 19 mg/dL (9-23)
[2024-06-20 15:52] LABS: Chloride 98 mmol/L (98-107); Glucose 118 mg/dL (74-106); Potassium 3.4 mmol/L (3.5-5.1); Sodium 134 mmol/L (136-145)
--- NOTE | 2024-06-20 15:52 | DVHDS2 ---
Discharge Summary Date of Admission Jun 16, 2024 at 02:29 Date of Discharge: Jun 20, 2024 Labs/Diagnostic Data: Laboratory Results Test 06/20/24 15:10 06/18/24 06:15 06/16/24 23:53 06/16/24 20:01 Vancomycin Level Trough 10.8 ug/mL (5-10) Urine Opiates Screen Neg (NEGATIVE) Urine Fentanyl Screen Neg (NEGATIVE) Urine Barbiturates Screen Neg (NEGATIVE) Urine Phencyclidine Screen Neg (NEGATIVE) Urine Amphetamines Screen Neg (NEGATIVE) Urine Benzodiazepines Screen Neg (NEGATIVE) Urine Cocaine Screen Neg (NEGATIVE) Urine Cannabinoids Screen Neg (NEGATIVE) Troponin I High Sensitivity 48 ng/L (</=54) Test 06/16/24 07:56 06/16/24 04:38 06/16/24 01:25 06/15/24 22:33 Lactic Acid Level 1.3 mmol/L (0.4-2.0) Erythrocyte Sedimentation Rate 65 mm/hr (0-20) Triglycerides Level 94 mg/dL (< 150) Cholesterol Level 106 mg/dL (< 200) LDL Cholesterol 47 mg/dL (< 100) HDL Cholesterol 41 mg/dL (40-59) Magnesium Level 2.0 mg/dL (1.6-2.6) White Blood Count 9.9 10^3/uL (4.4-10.8) Red Blood Count 4.63 10^6/uL (4.5-5.90) Hemoglobin 14.0 g/dL (13.5-17.5) Hematocrit 40.8 % (41.0-53.0) Mean Corpuscular Volume 88.0 fL (80.0-100.0) Mean Corpuscular Hemoglobin 30.2 pg (28.0-32.0) Mean Corpuscular Hemoglobin Concent 34.3 g/dL (32.0-36.0) Red Cell Distribution Width 14.9 % (11.8-14.3) Platelet Count 356 10^3/uL (140-450) Mean Platelet Volume 7.8 fL (6.9-10.8) Neutrophils (%) (Auto) 67.9 % (37.0-80.0) Lymphocytes (%) (Auto) 21.7 % (10.0-50.0) Monocytes (%) (Auto) 8.0 % (0.0-12.0) Eosinophils (%) (Auto) 1.4 % (0.0-7.0) Basophils (%) (Auto) 1.0 % (0.0-2.0) Neutrophils # (Auto) 6.7 10 ^3/uL (1.6-8.6) Lymphocytes # (Auto) 2.1 10 ^3/uL (0.4-5.4) Monocytes # (Auto) 0.8 10 ^3/uL (0-1.3) Eosinophils # (Auto) 0.1 10 ^3/uL (0-0.8) Basophils # (Auto) 0.1 10 ^3/uL (0-0.2) Nucleated Red Blood Cells 0.2 % B-Type Natriuretic Peptide 158.60 pg/mL (0-100) Other Laboratory Tests 06/15/24 22:33 Brief Hx & Hospital Course: 64-year-old male with a known history of chronic AFib congestive heart failure initiation with the hospital with increasing shortness breath found to have ACUTE CHF EXACERBATION WELL AFIB WITH RVR. PATIENT ALSO HAS RIGHT HAND CELLULITIS. PATIENT WAS STARTED ON AMIODARONE DRIP WHICH WAS SWITCHED TO BETA [place]. PATIENT'S BLOOD PRESSURE IS BETTER CONTROLLED. PATIENT WAS SEEN BY INFECTIOUS DISEASE WELL CARDIOLOGY. PATIENT WAS CLEARED TO BE DISCHARGED WITH P.O. ANTIBIOTICS. Condition at Discharge: Stable Final Diagnosis/Problems List 64-year-old male with a known history of chronic AFib congestive heart failure initiation with the hospital with increasing shortness breath found to have 1. Acute CHF exacerbation 2. AFib with a RVR, CURRENTLY RESOLVED 3. Hypertension 4. Diabetes mellitus type 2 5. Right hand cellulitis with open wound -increase metoprolol tartrate to 50 mg p.o. Discharge Disposition: Home SNF Discharge Will this Physician continue t: No Discharge Instruct/Medications Diet: Cardiac 2g Na,low cholest Activity: No Restrictions, As Tolerated Follow Up/Referral: FOLLOW UP WITH THE PCP IN 1-2 WEEKS FOLLOW UP WITH CARDIOLOGY IN 1-2 WEEKS Medications: RESUME HOME MEDICATIONS Discharge Statement: "Patient was advised to return to the ER or call 911 if any headaches, dizziness, shortness of breath, chest pain, abdominal pain, bleeding, fevers, or worsening of medical condition. Patient was counseled about treatment plan, medications, possible side effects, patientverbalized understanding. All questions were answered to the best of my ability. This discharge took greater then 30 minutes in planning, reviewing documentation, counseling the patient, and discussing with other team members." ASSESSMENT ASSESSMENT Assessment ACUTE CHF EXACERBATION Date of Service: Jun 20, 2024 Billing Provider: CELI AGUDELO MD Common Visit Codes: NOT BILLABLE CELI AGUDELO MD Jun 20, 2024 15:52
== END 2024-06-20 18:49 | disposition home or self-care (01) | DRG 291 ==
LOC: EDBD 21:57 → ER 21:57 → TELE 06-16 02:29 → TELE-WESTW 06-17 16:23
PROVIDERS: ADMIT Nurse Practitioner Family; ATTEND Nurse Practitioner Family
DX: I13.0 Hypertensive heart and chronic kidney disease with heart failure and stage 1 through stage 4 chronic kidney disease, or unspecified chronic kidney disease (principal); I50.43 Acute on chronic combined systolic (congestive) and diastolic (congestive) heart failure; L03.114 Cellulitis of left upper limb; I48.20 Chronic atrial fibrillation, unspecified; L03.113 Cellulitis of right upper limb; E87.6 Hypokalemia; E11.22 Type 2 diabetes mellitus with diabetic chronic kidney disease; E66.9 Obesity, unspecified; N18.9 Chronic kidney disease, unspecified; F22 Delusional disorders; F10.10 Alcohol abuse, uncomplicated; Z68.30 Body mass index [BMI] 30.0-30.9, adult; Z79.84 Long term (current) use of oral hypoglycemic drugs; Z79.899 Other long term (current) drug therapy; Y90.9 Presence of alcohol in blood, level not specified
CPT/HCPCS: 36415; 71045; 73200; 80048; 80061; 80202; 80307; 83605; 83735; 83880; 84484; 85025; 85652; 87205; 93005; 93306; 96374; G0378; J2003